=== PATIENT | female | born 1960 | race Caucasian/White ===

== ENCOUNTER 2017-05-17 20:27 | Inpatient (IN) | payer MEDICAID ==
[~2017-05-17] VITALS: Ht 167.6 cm; Wt 85.0 kg
[~2017-05-17 20:27] MED LIST: DIPH25CA83 PO; IBUP-1986 PO
[2017-05-17 20:56] LABS: BASOPHILS % (AUTO) 0.2 % (0-1); EOSINOPHILS # (AUTO) 0.2 X10'3 (0-0.9); EOSINOPHILS % (AUTO) 2.9 % (0-6); HEMATOCRIT 42.2 % (35.0-45.0); HEMOGLOBIN 14.4 g/dl (12.0-16.0); LYMPHOCYTES # (AUTO) 1.4 X10'3 (1.1-4.8); LYMPHOCYTES % (AUTO) 20.1 % (21-51); MEAN CORPUSCULAR HEMOGLOBIN 31.2 PG (27.0-31.0); MEAN CORPUSCULAR HGB CONC 34.1 % (33.0-36.5); MEAN CORPUSCULAR VOLUME 91.6 FL (78-98); MEAN PLATELET VOLUME 7.4 FL (7.4-10.4); MONOCYTES # (AUTO) 0.6 X10'3 (0-0.9); MONOCYTES % (AUTO) 8.4 % (2-12); NEUTROPHILS # (AUTO) 4.8 X10'3 (1.8-7.7); NEUTROPHILS % (AUTO) 68.4 % (42-75); PLATELET COUNT 189 X10'3 (140-440); RED BLOOD COUNT 4.61 X10'6 (4.20-5.60); RED CELL DISTRIBUTION WIDTH 15.1 % (11.5-14.5); WHITE BLOOD COUNT 6.9 X10'3 (4.5-11.0)
[2017-05-17 21:08] LABS: INR 0.9 INR; PARTIAL THROMBOPLASTIN TIME 26 SECONDS (22-32); PROTHROMBIN TIME 9.7 SECONDS (9.0-12.0)
[2017-05-17 21:11] LABS: ALANINE AMINOTRANSFERASE 103 U/L (12-78); ALBUMIN 3.9 G/DL (3.4-5.0); ALBUMIN/GLOBULIN RATIO 0.9 (1.1-1.5); ALKALINE PHOSPHATASE 146 IU/L (46-116); ANION GAP 10 (8-16); ASPARTATE AMINO TRANSFERASE 51 U/L (10-37); BILIRUBIN,TOTAL 0.4 MG/DL (0.1-1.0); BLOOD UREA NITROGEN 7 MG/DL (7-18); BUN/CREATININE RATIO 8.8 (6.6-38.0); CALCIUM 9.2 MG/DL (8.5-10.1); CHLORIDE 100 MMOL/L (99-107); GLUCOSE 126 MG/DL (70-104); POTASSIUM 3.2 MMOL/L (3.5-5.1); SODIUM 140 MMOL/L (135-145); TOTAL CARBON DIOXIDE 30.3 MMOL/L (24-32); TOTAL PROTEIN 8.3 G/DL (6.4-8.2); eGFR 75 ML/MIN
[2017-05-17] MEDS ORDERED: methylPREDNISolone sod succ 125mg/2ml vial IV ONE (21:25)
[2017-05-17] MEDS ORDERED: levoFLOXACIN 750MG TABLET PO ONE (21:25)
[2017-05-17] MEDS ORDERED: albuterol 2.5 MG/3 ML nebule CONTNEB PRN ×2 (21:25→23:15)
[2017-05-17] MEDS ORDERED: ipratropium 0.5 MG/2.5ML nebule IH ONE (21:25)
[2017-05-17] MEDS ORDERED: ondansetron/PF 4mg/2ml inj IV ONE (23:15)
[2017-05-17] MEDS ORDERED: LORazepam 2 mg/ml vial IV ONE (23:15)
[2017-05-17 23:51] LABS: ABG BASE EXCESS 4.4 mmol/L (-2.0-3.0); ABG HCO3 30.8 mmol/L (22.0-26.0); ABG OXYGEN SATURATION 89.5 % (95-98); ABG PCO2 (T) 52.3 mmHg (32.0-45.0); ABG PH (T) 7.387 (7.350-7.450); ABG PO2 (T) 55.3 mmHg (83-108); ALLEN'S TEST Positive; FCOHb 1.4 % (0.5-1.5); FLOW 4 L/min; FMetHb 0.2 % (0.3-1.12); FO2Hb 88.1 % (94-100); PATIENT TEMPERATURE 36.6; RESPIRATORY RATE (OBSERVED) 20 b/min; TOTAL HEMOGLOBIN 14.5 G/dl (12.0-16.0)
[2017-05-18] MEDS ORDERED: AMYL1CAP57 PO (00:15)
[2017-05-18] MEDS ORDERED: GABA-532 PO (00:15)
[2017-05-18] MEDS ORDERED: IPRA4AER IH (00:15)
[2017-05-18] MEDS ORDERED: HYDR-565 PO (00:15)
[2017-05-18] MEDS ORDERED: OMEP40CA37 PO (00:15)
[2017-05-18] MEDS ORDERED: BUDE10.2 INH (00:15)
[2017-05-18] MEDS ORDERED: ALBU18HF2 INH (00:15)
[2017-05-18] MEDS ORDERED: ALB0.5UD IH (00:15)
[2017-05-18] MEDS ORDERED: BUDE0.5A11 NEB (00:15)
[2017-05-18] MEDS ORDERED: HYDR25TA4 PO (00:15)
[2017-05-18] MEDS ORDERED: TRAZ-146 PO (00:15)
[2017-05-18] MEDS ORDERED: ATOR40TA PO (00:15)
[2017-05-18] MEDS ORDERED: acetaminophen 325mg tablet PO PRN (00:35)
[2017-05-18] MEDS ORDERED: ondansetron/PF 4mg/2ml inj IV PRN (00:35)
[2017-05-18] MEDS ORDERED: mag hydrox/Alum hydrox/simeth 30ml oral suspension PO PRN (00:35)
[2017-05-18] MEDS ORDERED: BUPR1PAT9 TOP (00:54)
[2017-05-18 01:15] VITALS: BP 133/84
[2017-05-18] MEDS: normal saline 1000ml 1,000 ML IV SCH ×2 (01:25→20:23)
[2017-05-18] MEDS ORDERED: gabapentin 300mg capsule PO ONE (01:45)
[2017-05-18] MEDS: HYDROcodone/acetaminophen 10/325mg tab PO PRN ×4 (02:44→22:00)
[2017-05-18] MEDS: albuterol 2.5 MG/3 ML nebule NEB SCH ×3 (04:02→11:16)
[2017-05-18 07:00] VITALS: BP 151/77
[2017-05-18] MEDS: pantoprazole 40mg Tablet.DR PO SCH (07:59)
[2017-05-18] MEDS: methylPREDNISolone sod succ 125mg/2ml vial IV SCH ×2 (07:59→16:12)
[2017-05-18] MEDS ORDERED: gabapentin 300mg capsule PO SCH (08:00)
[2017-05-18] MEDS: heparin, porcine 5000 units/ml vial SQ SCH ×2 (08:00→20:22)
[2017-05-18 09:22] LABS: BASOPHILS % (AUTO) 0.1 % (0-1); EOSINOPHILS % (AUTO) 0.5 % (0-6); HEMOGLOBIN 13.1 g/dl (12.0-16.0); LYMPHOCYTES # (AUTO) 0.8 X10'3 (1.1-4.8); LYMPHOCYTES % (AUTO) 15.4 % (21-51); MEAN CORPUSCULAR HEMOGLOBIN 31.4 PG (27.0-31.0); MEAN CORPUSCULAR HGB CONC 34.4 % (33.0-36.5); MEAN CORPUSCULAR VOLUME 91.2 FL (78-98); MEAN PLATELET VOLUME 8.3 FL (7.4-10.4); MONOCYTES # (AUTO) 0.1 X10'3 (0-0.9); MONOCYTES % (AUTO) 2.4 % (2-12); NEUTROPHILS # (AUTO) 4.2 X10'3 (1.8-7.7); NEUTROPHILS % (AUTO) 81.6 % (42-75); PLATELET COUNT 157 X10'3 (140-440); RED BLOOD COUNT 4.17 X10'6 (4.20-5.60); RED CELL DISTRIBUTION WIDTH 14.8 % (11.5-14.5); WHITE BLOOD COUNT 5.1 X10'3 (4.5-11.0)
[2017-05-18 09:39] LABS: ALANINE AMINOTRANSFERASE 94 U/L (12-78); ALBUMIN 3.5 G/DL (3.4-5.0); ALBUMIN/GLOBULIN RATIO 0.8 (1.1-1.5); ALKALINE PHOSPHATASE 124 IU/L (46-116); ANION GAP 14 (8-16); ASPARTATE AMINO TRANSFERASE 49 U/L (10-37); BILIRUBIN,TOTAL 0.3 MG/DL (0.1-1.0); BLOOD UREA NITROGEN 10 MG/DL (7-18); BUN/CREATININE RATIO 9.1 (6.6-38.0); CHLORIDE 93 MMOL/L (99-107); GLUCOSE 316 MG/DL (70-104); POTASSIUM 3.3 MMOL/L (3.5-5.1); SODIUM 131 MMOL/L (135-145); TOTAL CARBON DIOXIDE 24.4 MMOL/L (24-32); TOTAL PROTEIN 7.8 G/DL (6.4-8.2); eGFR 52 ML/MIN
[2017-05-18] MEDS: gabapentin 300mg capsule PO SCH ×2 (13:39→16:35)
[2017-05-18] MEDS ORDERED: potassium Cl 20 mEq SR tablet PO PRN ×2 (16:15)
[2017-05-18] MEDS ORDERED: potassium Cl 40MEQ/NS 500ml 500 ML IV PRN ×2 (16:15)
[2017-05-18] MEDS: magnesium hydroxide 30ml (MOM) UD suspension PO PRN (16:37)
[2017-05-18] MEDS ORDERED: MESSAGE TO PHARMACY PO ONE (16:55)
[2017-05-18] MEDS ORDERED: dextrose ORAL solution 15 GM/59 ML bottle PO PRN ×2 (16:55)
[2017-05-18] MEDS ORDERED: glucagon, human recombinant 1mg kit SUBCUT PRN (16:55)
[2017-05-18] MEDS ORDERED: dextrose 50%-water 50ml dispensing syringe IV PRN ×2 (16:55)
[2017-05-18] MEDS: ipratropium/albuterol 3ml nebule NEB SCH ×3 (17:06→22:37)
[2017-05-18 17:29] LABS: HEMOGLOBIN A1C 6.4 % (4.5-6.2)
[2017-05-18 20:00] VITALS: BP 146/79
[2017-05-18] MEDS: insulin Lispro (HumaLOG) vial - multi-dose SQ SCH ×2 (20:12→21:58)
[2017-05-18] MEDS: atorvastatin 20mg tablet PO SCH (20:21)
[2017-05-18] MEDS: traZODone 150mg tablet PO SCH (20:21)
[2017-05-18] MEDS ORDERED: traZODone 50mg tablet PO SCH (21:00)
[2017-05-18] MEDS: insulin glargine (Lantus) pen - multi-dose SQ SCH (21:57)
[2017-05-19] VITALS: BP 100/60
[2017-05-19] MEDS: gabapentin 300mg capsule PO SCH ×3 (00:16→17:37)
[2017-05-19] MEDS: methylPREDNISolone sod succ 125mg/2ml vial IV SCH ×3 (00:17→18:04)
[2017-05-19] MEDS: ipratropium/albuterol 3ml nebule NEB SCH ×6 (03:24→23:26)
[2017-05-19] MEDS: HYDROcodone/acetaminophen 10/325mg tab PO PRN ×3 (04:49→19:39)
[2017-05-19 05:02] LABS: BASOPHILS % (AUTO) 0.3 % (0-1); EOSINOPHILS # (AUTO) 0.1 X10'3 (0-0.9); EOSINOPHILS % (AUTO) 1.1 % (0-6); HEMATOCRIT 37.6 % (35.0-45.0); HEMOGLOBIN 12.9 g/dl (12.0-16.0); LYMPHOCYTES # (AUTO) 1.2 X10'3 (1.1-4.8); MEAN CORPUSCULAR HEMOGLOBIN 31.4 PG (27.0-31.0); MEAN CORPUSCULAR HGB CONC 34.4 % (33.0-36.5); MEAN CORPUSCULAR VOLUME 91.5 FL (78-98); MEAN PLATELET VOLUME 8.1 FL (7.4-10.4); MONOCYTES # (AUTO) 0.4 X10'3 (0-0.9); MONOCYTES % (AUTO) 3.6 % (2-12); NEUTROPHILS # (AUTO) 10.5 X10'3 (1.8-7.7); PLATELET COUNT 193 X10'3 (140-440); RED BLOOD COUNT 4.11 X10'6 (4.20-5.60); RED CELL DISTRIBUTION WIDTH 15.1 % (11.5-14.5); WHITE BLOOD COUNT 12.4 X10'3 (4.5-11.0)
[2017-05-19 05:36] LABS: ALANINE AMINOTRANSFERASE 95 U/L (12-78); ALBUMIN 3.5 G/DL (3.4-5.0); ALBUMIN/GLOBULIN RATIO 0.9 (1.1-1.5); ALKALINE PHOSPHATASE 112 IU/L (46-116); ANION GAP 9 (8-16); ASPARTATE AMINO TRANSFERASE 47 U/L (10-37); BILIRUBIN,TOTAL 0.2 MG/DL (0.1-1.0); BLOOD UREA NITROGEN 13 MG/DL (7-18); BUN/CREATININE RATIO 16.3 (6.6-38.0); CHLORIDE 102 MMOL/L (99-107); GLUCOSE 231 MG/DL (70-104); MAGNESIUM 2.4 MG/DL (1.5-2.4); POTASSIUM 3.9 MMOL/L (3.5-5.1); SODIUM 139 MMOL/L (135-145); TOTAL CARBON DIOXIDE 27.7 MMOL/L (24-32); TOTAL PROTEIN 7.6 G/DL (6.4-8.2); eGFR 75 ML/MIN
[2017-05-19 07:30] VITALS: BP 134/80
[2017-05-19] MEDS: pantoprazole 40mg Tablet.DR PO SCH (08:16)
[2017-05-19] MEDS: heparin, porcine 5000 units/ml vial SQ SCH ×2 (08:19→19:37)
[2017-05-19] MEDS: fluticasone/vilanterol 200mcg/25mcg inhaler IH SCH (08:56)
[2017-05-19] MEDS ORDERED: pneumococcal 23-VAL P-sac vacc 25 mcg/0.5ml vial IMVAC ONE (10:00)
[2017-05-19] MEDS ORDERED: predniSONE 20 mg tablet PO SCH (13:00)
[2017-05-19 14:15] VITALS: BP 128/81
[2017-05-19] MEDS ORDERED: diphenhydrAMINE 25mg capsule PO ONE (17:50)
[2017-05-19] MEDS: insulin Lispro (HumaLOG) vial - multi-dose SQ SCH (19:25)
[2017-05-19] MEDS: atorvastatin 20mg tablet PO SCH (19:38)
[2017-05-19] MEDS: traZODone 150mg tablet PO SCH (19:38)
[2017-05-19] MEDS: magnesium hydroxide 30ml (MOM) UD suspension PO PRN (19:42)
[2017-05-19 20:00] VITALS: BP 153/87
[2017-05-19] MEDS: insulin glargine (Lantus) pen - multi-dose SQ SCH (21:41)
[2017-05-20] VITALS: BP 159/66
[2017-05-20] MEDS: gabapentin 300mg capsule PO SCH ×2 (01:17→08:32)
[2017-05-20] MEDS: HYDROcodone/acetaminophen 10/325mg tab PO PRN ×2 (01:18→08:32)
[2017-05-20] MEDS: methylPREDNISolone sod succ 125mg/2ml vial IV SCH ×2 (01:19→08:00)
[2017-05-20] MEDS: ipratropium/albuterol 3ml nebule NEB SCH ×3 (03:19→10:52)
[2017-05-20 05:21] LABS: BASOPHILS % (AUTO) 0 % (0-1); EOSINOPHILS # (AUTO) 0.2 X10'3 (0-0.9); EOSINOPHILS % (AUTO) 1.3 % (0-6); HEMOGLOBIN 12.6 g/dl (12.0-16.0); LYMPHOCYTES # (AUTO) 0.9 X10'3 (1.1-4.8); LYMPHOCYTES % (AUTO) 6.8 % (21-51); MEAN CORPUSCULAR HEMOGLOBIN 31.6 PG (27.0-31.0); MEAN CORPUSCULAR HGB CONC 35.1 % (33.0-36.5); MEAN CORPUSCULAR VOLUME 90.2 FL (78-98); MEAN PLATELET VOLUME 7.8 FL (7.4-10.4); MONOCYTES # (AUTO) 0.4 X10'3 (0-0.9); MONOCYTES % (AUTO) 2.7 % (2-12); NEUTROPHILS # (AUTO) 11.7 X10'3 (1.8-7.7); NEUTROPHILS % (AUTO) 89.2 % (42-75); PLATELET COUNT 214 X10'3 (140-440); RED CELL DISTRIBUTION WIDTH 14.7 % (11.5-14.5); WHITE BLOOD COUNT 13.1 X10'3 (4.5-11.0)
[2017-05-20 05:42] LABS: ALANINE AMINOTRANSFERASE 94 U/L (12-78); ALBUMIN 3.6 G/DL (3.4-5.0); ALBUMIN/GLOBULIN RATIO 0.9 (1.1-1.5); ALKALINE PHOSPHATASE 101 IU/L (46-116); ANION GAP 9 (8-16); ASPARTATE AMINO TRANSFERASE 41 U/L (10-37); BILIRUBIN,TOTAL 0.3 MG/DL (0.1-1.0); BLOOD UREA NITROGEN 13 MG/DL (7-18); BUN/CREATININE RATIO 15.3 (6.6-38.0); CALCIUM 8.9 MG/DL (8.5-10.1); CHLORIDE 102 MMOL/L (99-107); CREATININE 0.85 MG/DL (0.40-0.90); GLUCOSE 207 MG/DL (70-104); MAGNESIUM 2.7 MG/DL (1.5-2.4); POTASSIUM 3.7 MMOL/L (3.5-5.1); SODIUM 142 MMOL/L (135-145); TOTAL CARBON DIOXIDE 30.6 MMOL/L (24-32); TOTAL PROTEIN 7.5 G/DL (6.4-8.2); eGFR 70 ML/MIN
[2017-05-20 07:00] VITALS: BP 139/72
[2017-05-20] MEDS: fluticasone/vilanterol 200mcg/25mcg inhaler IH SCH (08:00)
[2017-05-20] MEDS: pantoprazole 40mg Tablet.DR PO SCH (08:32)
[2017-05-20] MEDS: heparin, porcine 5000 units/ml vial SQ SCH (08:32)
[2017-05-20] MEDS: insulin Lispro (HumaLOG) vial - multi-dose SQ SCH (08:39)
[2017-05-20] MEDS ORDERED: PRED10TA23 PO (10:33)
[2017-05-20 11:00] VITALS: BP 139/72
[2017-05-20 11:15] LABS: HBSAG SCREEN Negative (Negative); HEP A AB, IGM Negative (Negative); HEP B CORE AB, IGM Negative (Negative); HEPATITIS C ANTIBODY <0.1 s/co ratio (0.0-0.9)
== END 2017-05-20 12:00 | disposition home or self-care (01) | DRG 133 ==
LOC: ER 20:27 → ED HOLD 05-18 00:32 → EDBEDREQ 05-18 00:49 → SUR 3N 05-18 01:10
PROVIDERS: ADMIT Internal Medicine; ATTEND Internal Medicine
DX: J96.00 Acute respiratory failure, unspecified whether with hypoxia or hypercapnia (principal); Z99.81 Dependence on supplemental oxygen; J44.1 Chronic obstructive pulmonary disease with (acute) exacerbation; E87.1 Hypo-osmolality and hyponatremia; J45.901 Unspecified asthma with (acute) exacerbation; K76.0 Fatty (change of) liver, not elsewhere classified; G62.9 Polyneuropathy, unspecified; G89.29 Other chronic pain; M54.9 Dorsalgia, unspecified; R73.9 Hyperglycemia, unspecified; R74.0 Nonspecific elevation of levels of transaminase and lactic acid dehydrogenase [LDH]; E78.00 Pure hypercholesterolemia, unspecified; E87.6 Hypokalemia; I10 Essential (primary) hypertension; Z82.3 Family history of stroke; Z87.891 Personal history of nicotine dependence; Z90.710 Acquired absence of both cervix and uterus; Z23 Encounter for immunization; Z88.2 Allergy status to sulfonamides; Z91.041 Radiographic dye allergy status
CPT/HCPCS: 36415; 36600; 71045; 76700; 80053; 80074; 82803; 82948; 83036; 83735; 84484; 85018; 85025; 85610; 85730; 87070; 87502; 87503; 90732; 93005; 94640; 94760; 96374; 96375; 99291; A4565; J1644; J1815; J2060; J2405; J2930; J7030; J7512; Q0163